=== PATIENT | female | born 1980 ===

== ENCOUNTER 2017-07-30 12:21 | Emergency (ER) | payer OTHER ==
[2017-07-30 12:32] VITALS: TEMP 98.3; O2SAT 100
[2017-07-30 12:40] VITALS: RESP 18
[2017-07-30 13:34] LABS: BASO # 0.02 K/mm3 (0.0-2.0); BASO % 0.4 % (0.0-3.0); EOS # 0.1 (0.0-0.7); EOS % 1.6 % (1.5-5.0); GRAN # 3.27 (1.4-6.5); GRAN % 59.6 % (50.0-68.0); HEMATOCRIT 38.2 % (36.0-48.0); LYMPH # 1.8 (1.2-3.4); LYMPH % 32.6 % (22.0-35.0); MEAN CORPUSCULAR HEMOGLOBIN 28.1 pg (25.0-35.0); MEAN CORPUSCULAR HGB CONC 34.3 g/dl (31.0-37.0); MEAN PLATELET VOLUME 8.6 fl (7.0-11.0); MONO # 0.3 (0.1-0.6); MONO % 5.8 % (1.0-6.0); WHITE BLOOD COUNT 5.5 10^3/ul (4.5-11.0)
[2017-07-30 13:36] LABS: URINE BILIRUBIN NEGATIVE (NEGATIVE); URINE BLOOD NEGATIVE (NEGATIVE); URINE GLUCOSE (UA) NEGATIVE (NEGATIVE); URINE KETONE NEGATIVE (NEGATIVE); URINE LEUKOCYTE ESTERASE TRACE Leu/uL (NEGATIVE); URINE PROTEIN NEGATIVE mg/dL (<30 mg/dL); URINE UROBILINOGEN 0.2 E.U./dL (<1 E.U./dL)
[2017-07-30 13:37] LABS: URINE APPEARANCE CLEAR (CLEAR); URINE COLOR YELLOW (YELLOW)
[2017-07-30 13:45] LABS: ALB/GLOB RATIO 1.4 (1.1-1.8); ALKALINE PHOSPHATASE 61 U/L (38-126); ALT/SGPT 35 U/L (7-56); AMYLASE 94 U/L (35-125); AST/SGOT 30 U/L (14-36); BILIRUBIN,TOTAL 0.5 mg/dL (0.2-1.3); BLOOD UREA NITROGEN 15 mg/dL (7-21); CALCIUM 9.1 mg/dL (8.4-10.5); CARBON DIOXIDE 21 mmol/L (21-33); CHLORIDE 105 mmol/L (98-107); GFR AFRICAN-AMERICAN > 60; GLUCOSE,RANDOM 98 mg/dL (70-110); POTASSIUM 4.1 mmol/L (3.6-5.0); SODIUM 139 mmol/L (132-148); TOTAL PROTEIN 7.9 g/dL (5.8-8.3)
[2017-07-30 13:49] LABS: URINE BACTERIA FEW (NEG); URINE EPITHELIAL CELLS 0 - 2 /hpf (0-5); URINE RBC 0 - 2 /hpf (0-2)
--- NOTE | 2017-07-30 14:16 | ED PDOC ---
Arrival/HPI - General Chief Complaint: Body Fluid Exposure Time Seen by Provider: 07/30/17 12:38 Historian: Patient - History of Present Illness Narrative History of Present Illness (Text): 07/30/17 Keturah Azevedo is a 37 year old female, who presents to the emergency department complaining of pain on her third right digit hand after accidentally getting stuck with a needle. 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 When she went to go clean a guest room she got struck with a small hollow needle about 30 gauge and less than an inch in size. Patient denies any fever, nausea, vomiting shortness of breath, headache, or other complaints. Patient went to cruise doctor and he recommended for her to come to the emergency department. Time/Duration: Prior to Arrival Symptom Onset: Sudden Symptom Course: Unchanged Activities at Onset: Light Context: Work Past Medical History - Provider Review Nursing Documentation Reviewed: Yes - Travel History If Yes, travel location?: [place] - Psychiatric Hx Psychophysiologic Disorder: No Hx Substance Use: No - Surgical History Hx Section: Yes - Anesthesia Hx Anesthesia: Yes Family/Social History - Physician Review Nursing Documentation Reviewed: Yes Family/Social History: Unknown Family HX Smoking Status: Never Smoked Hx Alcohol Use: No Hx Substance Use: No Allergies/Home Meds Allergies/Adverse Reactions: Allergies No Known Allergies Allergy (Verified 07/30/17 12:25) Review of Systems - Review of Systems Constitutional: absent: Fevers Respiratory: absent: SOB Cardiovascular: absent: Chest Pain Gastrointestinal: absent: Abdominal Pain Genitourinary Female: absent: Dysuria Skin: Other (stuck by needle) Neurological: absent: Headache Physical Exam Vital Signs Reviewed: Yes Vital Signs Temp Pulse Resp BP Pulse Ox 07/30/17 15:56 66 18 128/74 100 07/30/17 14:22 69 18 131/79 100 07/30/17 12:40 98.3 F 73 18 133/89 100 07/30/17 12:25 98.3 F 73 16 133/89 100 Temperature: Afebrile Blood Pressure: Normal Pulse: Regular Respiratory Rate: Normal Appearance: Positive for: Well-Appearing, Non-Toxic, Comfortable Pain Distress: None Mental Status: Positive for: Alert and Oriented X 3 - Systems Exam Head: Present: Atraumatic, Normocephalic Pupils: Present: PERRL Extroacular Muscles: Present: EOMI Conjunctiva: Present: Normal Mouth: Present: Moist Mucous Membranes Neck: Present: Normal Range of Motion Respiratory/Chest: Present: Clear to Auscultation, Good Air Exchange. No: Respiratory Distress, Accessory Muscle Use Cardiovascular: Present: Regular Rate and Rhythm, Normal S1, S2. No: Murmurs Abdomen: Present: Normal Bowel Sounds. No: Tenderness, Distention, Peritoneal Signs Upper Extremity: Present: Normal Inspection. No: Cyanosis, Edema Lower Extremity: Present: Normal Inspection, Other (right 3rd fingertip with the small puncture les, no erythema, no swelling, no bleeding). No: Edema Neurological: Present: GCS=15, CN II-XII Intact, Speech Normal Skin: Present: Warm, Dry, Normal Color, Other (3rd digit right hand. Needle struck ). No: Rashes Psychiatric: Present: Alert, Oriented x 3, Normal Insight, Normal Concentration Medical Decision Making ED Course and Treatment: Impression: 37 year old female with third digit right hand pain after being accidentally stuck with needle at work. Differential Diagnosis included but are not limited to: Plan: -- Labs -- UA -- Reassess and disposition Progress Notes: Labs for CBC, CMP, hepatitis panel and HIV sent as per Needle stick protocol. Tetanus vaccination, the first Hep B vaccine, Truvada and Isentress po were given. Patient was d/c home, she will follow up with the cruise [facility] physician. - Lab Interpretations Lab Results: 07/30/17 13:05 07/30/17 13:05 Lab Results 07/30/17 13:25: Urine Color Yellow, Urine Appearance Clear, Urine pH 6.0, Ur Specific [place] 1.020, Urine Protein Negative, Urine Glucose (UA) Negative, Urine Ketones Negative, Urine Blood Negative, Urine Nitrate Negative, Urine Bilirubin Negative, Urine Urobilinogen 0.2, Ur Leukocyte Esterase Trace H, Urine RBC 0 - 2, Urine WBC 2 - 5, Ur Epithelial Cells 0 - 2, Urine Bacteria Few , Urine HCG, Qual Negative 07/30/17 13:05: Sodium 139, Potassium 4.1, Chloride 105, Carbon Dioxide 21, Anion Gap 17, BUN 15, Creatinine 0.7, Est GFR ( Amer) > 60, Est GFR (Non- Af Amer) > 60, Random Glucose 98, Calcium 9.1, Total Bilirubin 0.5, AST 30, ALT 35, Alkaline Phosphatase 61, Total Protein 7.9, Albumin 4.6, Globulin 3.3, Albumin/Globulin Ratio 1.4, Amylase 94 07/30/17 13:05: WBC 5.5, RBC 4.66, Hgb 13.1, Hct 38.2, MCV 82.0, MCH 28.1, MCHC 34.3, RDW 13.0, Plt Count 338, MPV 8.6, Gran % 59.6, Lymph % (Auto) 32.6, Yates % (Auto) 5.8, Eos % (Auto) 1.6, Baso % (Auto) 0.4, Gran # 3.27, Lymph # 1.8, Yates # 0.3, Eos # 0.1, Baso # 0.02 I have reviewed the lab results: Yes - Medication Orders Current Medication Orders: Discontinued Medications Emtricitabine/Tenofovir (Truvada 200 Mg-300 Mg) 1 tab PO STAT STA Stop: 07/30/17 15:56 Last Admin: 07/30/17 16:10 Dose: 1 tab Hepatitis B Vaccine (Engerix-B) 20 mcg IM .ONCE ONE Stop: 07/30/17 15:24 Last Admin: 07/30/17 15:41 Dose: 20 mcg Raltegravir (Isentress) 400 mg PO STAT STA Stop: 07/30/17 15:56 Last Admin: 07/30/17 16:08 Dose: 400 mg Tetanus/Reduced Diphtheria/Acell Pertussis (Boostrix Vaccine Inj) 0.5 ml IM .ONCE ONE Stop: 07/30/17 14:39 Last Admin: 07/30/17 14:58 Dose: 0.5 ml - Scribe Statement The provider has reviewed the documentation as recorded by the Scribe 07/30/2017 Paulina Lawrence Provider Scribe Attestation: All medical record entries made by the Scribe were at my direction and personally dictated by me. I have reviewed the chart and agree that the record accurately reflects my personal performance of the history, physical exam, medical decision making, and the department course for this patient. I have also personally directed, reviewed, and agree with the discharge instructions and disposition. Disposition/Present on Arrival - Present on Arrival Any Indicators Present on Arrival: No History of DVT/PE: No History of Uncontrolled Diabetes: No Urinary Catheter: No History of Decub. Ulcer: No History Surgical Site Infection Following: None - Disposition Have Diagnosis and Disposition been Completed?: Yes Diagnosis: Needle stick injury of finger Disposition: HOME/ ROUTINE Disposition Time: 15:57 Patient Plan: Discharge Condition: STABLE Discharge Instructions (ExitCare): Needle Stick Injuries (ED) Additional Instructions: Follow up with your Doctor in the ship. You need to complete Hepatitis B vaccination, 1 month from now and 6 months from now. You were given RX for HIV prophylaxis that you need to complete. If you have any unusual symptoms, like abdominal pain, nausea/vomiting, please visit your ship physician. Prescriptions: Raltegravir Potassium [Isentress] 400 mg PO BID #60 tab Emtricitabine/Tenofovir (Tdf) [Truvada 200 mg-300 mg Tablet] 1 each PO DAILY # 30 tablet Referrals: PCP,NO [Primary Care Provider] - Follow up with primary Forms: [facility] ([place])
[2017-07-30] MEDS ORDERED: TDAP Vaccine 0.5 mL Syr IM ONE (14:38)
[2017-07-30] MEDS ORDERED: Hepatitis B Vaccine 20 mcg/mL Inj IM ONE (15:23)
[2017-07-30] MEDS ORDERED: Emtricitabine-Tenofovir 200 mg-300 mg Tab PO STA (15:55)
[2017-07-30 15:56] VITALS: BP 128/74; PULSE 66
== END 2017-07-30 16:12 | disposition home or self-care (01) ==
LOC: ED 12:21
DX: S69.91XA Unspecified injury of right wrist, hand and finger(s), initial encounter (principal); W46.0XXA Contact with hypodermic needle, initial encounter; Y99.0 Civilian activity done for income or pay; Z23 Encounter for immunization